=== PATIENT | female | born 1970 | race Caucasian/White ===

== ENCOUNTER 2017-10-25 16:10 | Outpatient (REF) | payer MEDICAID, SELFPAY ==
[2017-10-25 22:48] LABS: Cholesterol 122 mg/dL (50-200); HDL Cholesterol 33 mg/dL (40-60); LDL CHOLESTEROL 80 mg/dL (<100); Triglyceride 92 mg/dL (30-150)
[2017-10-25 23:05] LABS: Hemoglobin A1C 6.8 % (4.5-6.2)
== END 2017-10-25 16:30 ==
LOC: NCHCN 16:10
PROVIDERS: PCP Nurse Practitioner Family; Visit Provider Nurse Practitioner Family
DX: E11.9 Type 2 diabetes mellitus without complications (principal); R03.0 Elevated blood-pressure reading, without diagnosis of hypertension
CPT/HCPCS: 80061; 83721; 83036

== ENCOUNTER 2017-10-25 16:31 | Outpatient (REF) | payer MEDICAID, SELFPAY ==
[2017-10-26 02:17] LABS: COMMENT (LAB VIEW ONLY) 183.21 mg/dL; Microalb ug/mg Crea 15.9 ug/mg Cr
== END 2017-10-25 16:51 ==
LOC: NCHCN 16:31
PROVIDERS: PCP Nurse Practitioner Family; Visit Provider Nurse Practitioner Family
DX: E11.9 Type 2 diabetes mellitus without complications (principal); R03.0 Elevated blood-pressure reading, without diagnosis of hypertension
CPT/HCPCS: 82043; 82570

== ENCOUNTER 2017-11-27 15:06 | Outpatient (REF) | payer MEDICAID, SELFPAY ==
[2017-11-27 20:44] LABS: Anion Gap 11.6 mmol/L (3-11); BUN 13 mg/dL (7-18); CO2 24.4 mmol/L (21.0-32.0); CREATININE 0.78 mg/dL (0.55-1.02); Chloride 104 mmol/L (98-107); Glucose 88 mg/dL (70-100); Potassium 4.4 mmol/L (3.5-5.1); Sodium 140 mmol/L (136-145)
== END 2017-11-27 15:26 ==
LOC: NCHCN 15:06
PROVIDERS: PCP Nurse Practitioner Family; Visit Provider Nurse Practitioner Family
DX: E11.9 Type 2 diabetes mellitus without complications (principal)
CPT/HCPCS: 80048

== ENCOUNTER 2017-12-07 08:59 | Outpatient (CLI) | payer MEDICAID, SELFPAY ==
[2017-12-07 10:03] LABS: Anion Gap 9.8 mmol/L (3-11); BUN 11 mg/dL (7-18); CO2 23.2 mmol/L (21.0-32.0); CREATININE 0.98 mg/dL (0.55-1.02); Chloride 103 mmol/L (98-107); Glucose 196 mg/dL (70-100); Potassium 4.8 mmol/L (3.5-5.1); Sodium 136 mmol/L (136-145)
== END 2017-12-07 09:19 ==
PROVIDERS: PCP Nurse Practitioner Family; Visit Provider Nurse Practitioner Family
DX: E11.9 Type 2 diabetes mellitus without complications (principal)
CPT/HCPCS: 36415; 80048

== ENCOUNTER 2017-12-11 10:54 | Outpatient (CLI) | payer MEDICAID, SELFPAY ==
--- NOTE | 2017-12-11 10:45 | DIABASSESS_ITS ---
DESCRIPTION/ASSESSMENT: Lesvia White presents for diabetes self management focused on nutrition with her worksite wellness practitioner. Food Guidelines - Lesvia eats 2 meals a day of lunch consisting of leftovers or a sandwich with chips. She has meat, potato, vegetable for supper however she had hamburg with boxed macaroni and cheese last night. She occasionally has ice cream in the evening. She denies sweets. She does drink Mexican vanilla creamer in coffee which she drinks all day. She states she experienced weight gain while hospitalized with the stroke. Her referral identifies her as food insecure, however she denies this. She does say she runs out of food at the end of the month with food stamps but she goes to the food shelves to supplement. Physical Activity - She does no planned physical activity. She has difficulty with her left side secondary to a stroke limiting her ability. She is starting PT Monday. Medication - Metformin 1000mg twice daily without symptoms/side effects. Monitoring - A1c 6.8 Lesvia is dedicated to monitoring every morning ranging 137- 227. She also monitors before lunch 115-237 or supper 91-201. Risks/Related health history - s/p stroke. Coping - admits to high stress with current homelessness living with her 10 year old son. INTERVENTION: DSME is provided in the following AADE 7 areas based on patients interest and assessment of needs given A1c is at current goal: Food Guidelines - reviewed diabetes food guide focused on non-carbohydrate food choices. She is further referred to [facility] and given information. Physical Activity - discussed options given limitation. She does not have a band , but she does PT exercises most days. Encouraged her to ask about general muscle movement when at PT. Monitoring - encouraged increased documentation of food/stress to help understand blood sugar results. Coping - she has support from [facility] and [facility] at the least. Discussed deep breathing as stress reliever and demonstrated process. ACTION PLAN: Participate in [facility] and increase vegetable intake at lunch and supper. Discuss general physical activity with PT at next visit Document food and stress level when blood sugars are above goal Individual MNT 3 units billed TIME IN: 5241 OUT: 9405 No DM group education series being offered at this time.
== END 2017-12-11 11:14 ==
PROVIDERS: PCP Nurse Practitioner Family; Visit Provider Dietitian, Registered
DX: E11.9 Type 2 diabetes mellitus without complications (principal); Z71.3 Dietary counseling and surveillance; Z79.84 Long term (current) use of oral hypoglycemic drugs
CPT/HCPCS: 97802

== ENCOUNTER 2018-04-04 17:52 | Outpatient (REF) | payer MEDICAID, SELFPAY | END 2018-04-04 18:12 | LOC: NCHCN 17:52 | PROVIDERS: PCP Nurse Practitioner Family; Visit Provider Family Medicine | DX: N39.0 Urinary tract infection, site not specified (principal) | CPT/HCPCS: 87077; 87086; 87186 ==

== ENCOUNTER 2018-08-13 22:00 | Emergency (ER) | payer MEDICAID, SELFPAY ==
[2018-08-13 22:04] VITALS: BP 157/87; PULSE 125; RESP 18; TEMP 36.8; O2SAT 98
--- NOTE | 2018-08-13 22:15 | W.ED.GENAD ---
Discharge Plan Disposition Patient Disposition: HOME Condition: Good Discharge Details Chief Complaint: Orthopedic Clinical Impression: Frozen shoulder syndrome Primary Care Provider: Chula Dallas ED Provider: David Gilbert Home Meds and New Rx's Prescriptions: No Action lisinopril 5 mg tablet 5 mg PO DAILY RF: 0 atorvastatin 80 mg tablet 80 mg PO DAILY RF: 0 omeprazole 40 mg capsule,delayed release(DR/EC) 40 mg PO DAILY RF: 0 aspirin 81 mg tablet,chewable 81 mg PO DAILY RF: 0 fluoxetine 20 mg capsule 20 mg PO DAILY RF: 0 lisdexamfetamine [Vyvanse] 30 mg capsule 30 mg PO DAILY RF: 0 metformin 500 mg tablet 1,000 mg PO BID RF: 0 acetaminophen [Mapap Extra Strength] 500 MG tablet 1,000 mg PO PRN PRNRF: 0 ibuprofen 200 MG tablet 400 mg PO PRN PRN (Reason: Pain) RF: 0 hydrocodone-acetaminophen 1 EACH tablet 1 ea PO QID PRN PRN (Reason: Pain) Qty: 15 RF: 0 Discharge Instructions Instructions: Adhesive Capsulitis (ED) Additional Instructions: You have what I suspect to be frozen shoulder syndrome. Your x-ray shows no evidence of fracture. Please follow-up closely with your primary care provider to set up physical therapy on an outpatient basis. Will be contacted by the orthopedic doctors for evaluation of your shoulder restrictions. If you notice any worsening of your symptoms, or any new symptoms such as vomiting, diarrhea, fever, chills, shortness of breath, chest pain, numbness, weakness, or fainting , please return immediately to the emergency department for reevaluation. Please follow up with your primary care provider as soon as possible for reassessment and reevaluation. As always, it was a pleasure participating in your medical care today. Referrals: Chula Dallas [Primary Care Provider] - Medical Decision Making This is a 48-year-old female with past medical history of a stroke with significant left-sided deficits. 1 year ago she had a stroke which led to notable weakness of the left upper extremity as well as lack of sensation in the left upper extremity. At the same time she also fell and landed on her left shoulder. She had improvement of her strength and mobility after the stroke with vigorous rehab, however about 1 to 2 months ago she began having pain again in the shoulder after no trauma or other event. Because of this she has been moving it significantly less. She presents today for further evaluation of her shoulder. Exam demonstrates notable limitation in range of motion for the shoulder. Sensation is completely absent for the entire arm which she states is chronic. Mild pain over the AC joint. Signs and symptoms appear clinically consistent with frozen shoulder syndrome. We will get an x-ray to rule out acute process however I feel this notably unlikely in regards to the history. With no chest symptoms whatsoever, and notably reproducible musculoskeletal component, feel her signs and symptoms are notably inconsistent with ACS 11:05 PM Review of x-ray shows no evidence of significant fracture or acute process. Signs and symptoms appear clinically consistent with frozen shoulder syndrome at this time. We have discussed exercises for which the patient should perform, however because of the severity of this I do feel that she requires outpatient PT evaluation and can be set up on an outpatient basis by her PCP, as well as orthopedic follow-up. We will place a referral for this. We discussed red flags which to return, the importance of close follow-up. I have extensively reviewed the treatment plan and discharge instructions with the patient. I have addressed all patient concerns at this time. The patient was made aware of what symptoms to monitor for that would warrant a return to the emergency department. Discussed the plan with the patient, they demonstrate verbal understanding and agreement with our assessment and plan at this time. FINDINGS: Bones/joints: No suspicious osseous lytic or blastic lesion. No acute fracture or dislocation. Soft tissues: No focal abnormality. IMPRESSION: No acute findings. Thank you for allowing us to participate in the care of your patient. Dictated and Authenticated by: Adin Ruvalcaba MD 08/13/2018 11:08 PM Eastern Time ([place] & [place]) HPI General Date/Time Provider Initiated Documentation: 08/13/18 22:14. HPI Narrative: This is a 48-year-old female with past medical history of diabetes, stroke with significant chronic left-sided deficits, left-sided numbness, as well as regular tobacco abuse who presents today for evaluation of left shoulder pain. Patient states that she had the stroke and injured her left shoulder 1 year ago, after the stroke she lost all sensation in a significant amount of strength in her left upper extremity. Sensation has yet to come back, however she has had a slight improvement of strength over the last year with vigorous physical therapy. Unfortunately about a month to a month and a half ago she began feeling pain in the left shoulder, because of this started moving it less. She presents today out of continuation of the left shoulder pain, in conjunction with a notable decrease in range of motion in the left shoulder. She states that she did mention this to her PCP, but nothing more was done. She denies any new numbness or tingling, she denies any chest pain, or shortness of breath. Her shoulder pain is made worse with movement of the left shoulder. No radiation to the chest or neck. No history of cardiac disease. She denies any other complaints or modifying factors at this time. Related Data Home Medications Medication Instructions Recorded Confirmed acetaminophen [Tylenol Extra 1,000 mg PO PRN PRN 05/11/14 08/01/15 Strength] ibuprofen 400 mg PO PRN PRN 05/11/14 08/01/15 hydrocodone-acetaminophen 1 ea PO QID PRN PRN #15 tablet 04/08/15 aspirin 81 mg chewable tablet 81 mg PO DAILY 12/25/17 12/25/17 atorvastatin 80 mg tablet 80 mg PO DAILY 12/25/17 12/25/17 fluoxetine 20 mg capsule 20 mg PO DAILY 12/25/17 12/25/17 lisdexamfetamine 30 mg capsule 30 mg PO DAILY 12/25/17 12/25/17 lisinopril 5 mg tablet 5 mg PO DAILY 12/25/17 12/25/17 metformin 500 mg tablet 1,000 mg PO BID tab 12/25/17 12/25/17 omeprazole 40 mg capsule,delayed 40 mg PO DAILY 12/25/17 12/25/17 release Previous Rx's Medication Instructions Recorded hydrocodone-acetaminophen 1 ea PO QID PRN PRN #15 tablet 04/08/15 Allergies Allergy/AdvReac Type Severity Reaction Status Date / Time codeine AdvReac Mild Nausea Unverified 08/01/15 18:54 tramadol HCl [From Ultram] AdvReac Mild Nausea Unverified 08/01/15 18:54 General Stated Complaint: Orthopedic KALLI: 4 Review of Systems Review of Systems All systems reviewed & are unremarkable except as noted in HPI and below PFSH Medical History ADHD (Acute) Shoulder pain, left (Acute) Tobacco abuse (Acute) Diabetes (Chronic) Stroke (Chronic) Social History Smoking/Tobacco Use Status: Current every day Tobacco Type: cigarettes Smoking cigarettes per day: 5 Alcohol Intake: never Drug use: Never Substance use type: does not use Household members: family What type of physical activity do you participate in: walking Do you feel safe at home: Yes Do you feel safe in your relationship?: Yes Exam Narrative Exam Narrative: 1.Const: Well-nourished, Well-developed, appearing stated age 2.Eyes: PERRL, no conjunctival injection, and symmetrical lids. 3.ENT: Atraumatic external nose and ears. Moist MM. Neck: Symmetric, trachea midline, No thyromegaly. 4.CVS: +S1/S2, No murmurs or gallops. Peripheral pulses 2+ and equal in all extremities. Brisk capillary refill in all extremities. 5.RESP: Unlabored respiratory effort. Clear to auscultation bilaterally. No wheezes rales or rhonchi 6.GI: Soft, Nontender/Nondistended, No hepatosplenomegaly. No guarding or rebound. 7.MSK: Normocephalic/Atraumatic, Extremities w/o deformity. No cyanosis or clubbing, left upper extremity has complete lack of sensation from the shoulder to the fingertips. She has good range of motion for the fingers and good strength, and of her wrist flexion extension is notably limited. She has minimal strength for flexion and extension at the elbow minimal strength for abduction abduction flexion and extension. Range of motion is notably limited for movements of the shoulder. She has roughly 5 to 10 degrees of range of motion for both abduction, abduction, and internal and external rotation of the shoulder. Notably limited, concerning for frozen shoulder. Mild tenderness over the AC joint. 8.Skin: Warm, Dry. No rashes or lesions. 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 Sensation is notably limited in left upper extremity which is her baseline. 10.Psych: (AAO) x3. Appropriate mood and affect Course Vital Signs Temperature 36.8 C 08/13/18 22:04 Pulse 125 H 08/13/18 22:04 Respiratory Rate 18 08/13/18 22:04 Blood Pressure 157/87 H 08/13/18 22:04 Pulse Oximetry 98 08/13/18 22:04 Temperature 36.8 C 08/13/18 22:04 Temperature Source Temporal Artery Scan 08/13/18 22:04 Pulse 125 H 08/13/18 22:04 Respiratory Rate 18 08/13/18 22:04 Respiratory Effort 08/13/18 22:04 Blood Pressure 157/87 H 08/13/18 22:04 Blood Pressure Position Sitting 08/13/18 22:04 Pulse Oximetry 98 08/13/18 22:04 Oxygen Delivery Method Room Air 08/13/18 22:04 Oxygen Flow Rate 0 08/13/18 22:04 Pain Level 9 08/13/18 22:04
--- NOTE | 2018-08-13 22:25 | DI.RAD_ITS ---
SYMPTOM/DIAGNOSIS: LT SHOULDER PAIN, CONCERN FOR FROZEN SHOULDER RIGHT SHOULDER: No fracture or dislocation is seen. There are no visible degenerative changes of the AC joint or glenohumeral joint. The humeral head appears normally positioned. No tendon or joint space calcifications are seen. The visualized portions of the left upper lobe and left ribs are unremarkable. IMPRESSION: Negative left shoulder.
[2018-08-13] MEDS: Lidocaine 5% Patch 1 PATCH TP (22:27)
--- NOTE | 2018-08-13 23:08 | DI.VRAD_ITS ---
EXAM: XR Left Shoulder EXAM DATE/TIME: 08/13/2018 10:15 PM CLINICAL HISTORY: 48 years old, female; Patient HX: Left shoulder pain, concern for frozen shoulder TECHNIQUE: Imaging protocol: XR Left shoulder. Views: 2 or more views. COMPARISON: No relevant prior studies available. FINDINGS: Bones/joints: No suspicious osseous lytic or blastic lesion. No acute fracture or dislocation. Soft tissues: No focal abnormality. IMPRESSION: No acute findings. Dictated and Authenticated by: Adin Ruvalcaba MD. Ordering:CODI Hernandez MD
== END 2018-08-13 23:18 | disposition home or self-care (01) ==
PROVIDERS: Emergency Provider Student in an Organized Health Care Education/Training Program; PCP Nurse Practitioner Family
DX: M75.02 Adhesive capsulitis of left shoulder (principal); I69.134 Monoplegia of upper limb following nontraumatic intracerebral hemorrhage affecting left non-dominant side; I10 Essential (primary) hypertension; E11.9 Type 2 diabetes mellitus without complications; Z79.84 Long term (current) use of oral hypoglycemic drugs
CPT/HCPCS: 99283; 73030

== ENCOUNTER 2018-11-16 12:00 | Outpatient (REF) | payer MEDICAID, SELFPAY ==
[2018-11-16 18:26] LABS: COMMENT (LAB VIEW ONLY) 223.45 mg/dL; Microalb ug/mg Crea 31.8 ug/mg Cr
== END 2018-11-16 12:20 ==
LOC: NCHCN 12:00
PROVIDERS: PCP Nurse Practitioner Family; Visit Provider Nurse Practitioner Family
DX: E11.9 Type 2 diabetes mellitus without complications (principal)
CPT/HCPCS: 82043; 82570

== ENCOUNTER 2019-08-02 19:10 | Outpatient (REF) | payer MEDICAID, SELFPAY ==
[2019-08-08 17:05] LABS: Benzoylecgonine 296 ng/mL (Cutoff: 50); Cocaine Negative ng/mL (Cutoff: 50); Cocaine Interpretation Positive.
[2019-08-10 01:14] LABS: Amphetamine Negative ng/mL (Cutoff: 25); Amphetamines Interpretation Negative.; MDA (Ecstasy Metabolite) Negative ng/mL (Cutoff: 25); MDMA (Ecstasy) Negative ng/mL (Cutoff: 25); Methamphetamine Negative ng/mL (Cutoff: 25); Phentermine Negative ng/mL (Cutoff: 25); Pseudoephedrine/Ephedrine Negative ng/mL (Cutoff: 25)
== END 2019-08-02 19:30 ==
LOC: NCHCN 19:10
PROVIDERS: PCP Nurse Practitioner Family; Visit Provider Nurse Practitioner Family
DX: Z79.899 Other long term (current) drug therapy (principal); Z51.81 Encounter for therapeutic drug level monitoring
CPT/HCPCS: 80324; 80353

== ENCOUNTER 2020-07-15 18:13 | Outpatient (REF) | payer MEDICAID, SELFPAY ==
[2020-07-15 17:27] LABS: HCT 43.5 % (36.0-46.0); HGB 14.1 g/dL (11.2-15.7); MCH 27.4 pg (27.0-33.0); MCHC 32.4 % (32.0-36.0); MCV 84.5 fL (80-95); MPV 12.3 fL (8.0-11.0); Platelet Count 327 10^3/uL (130-400); RBC 5.15 10^6/uL (3.93-5.22); RDW 15.2 % (11.7-14.6); RDW-SD 46.9 fL; WBC 10.51 10^3/uL (4.4-10.8)
[2020-07-15 17:41] LABS: ALT 33 U/L (14-59); AST 21 U/L (15-37); Albumin 3.9 g/dL (3.4-5.0); Alkaline Phosphatase 120 U/L (46-116); Anion Gap 8.8 mmol/L (3-11); BUN 14 mg/dL (7-18); Bilirubin, Total 0.5 mg/dL (0.2-1.0); CO2 27.2 mmol/L (21.0-32.0); CREATININE 0.9 mg/dL (0.55-1.02); Calcium 9.4 mg/dL (8.5-10.1); Calculated LDL 118 mg/dL (<100); Chloride 102 mmol/L (98-107); Cholesterol 184 mg/dL (<200); Glucose 246 mg/dL (74-106); HDL Cholesterol 21 mg/dL (40-60); Potassium 4.5 mmol/L (3.5-5.1); Sodium 138 mmol/L (136-145); Total Protein 7.6 g/dL (6.4-8.2); Triglyceride 229 mg/dL (<150)
== END 2020-07-15 18:14 | disposition home or self-care (01) ==
LOC: NCHCN 18:13
PROVIDERS: PCP Nurse Practitioner Family; Visit Provider Family Medicine
DX: E11.9 Type 2 diabetes mellitus without complications (principal); I10 Essential (primary) hypertension
CPT/HCPCS: 80053; 80061; 85027

== ENCOUNTER 2020-09-29 17:30 | Outpatient (REF) | payer MEDICAID, SELFPAY ==
[2020-09-29 21:57] LABS: COMMENT (LAB VIEW ONLY) 105.95 mg/dL
[2020-09-29 22:00] LABS: Microalb ug/mg Crea 103.8 ug/mg Cr
[2020-09-29 22:02] LABS: Hemoglobin A1C 10.5 % (<5.7)
== END 2020-09-29 17:31 | disposition home or self-care (01) ==
LOC: NCHCN 17:30
PROVIDERS: PCP Nurse Practitioner Family; Visit Provider Nurse Practitioner Family
DX: E11.9 Type 2 diabetes mellitus without complications (principal)
CPT/HCPCS: 82043; 82570; 83036

== ENCOUNTER → 2021-08-16 01:52 | Outpatient (CLI) | payer MEDICAID, SELFPAY | PROVIDERS: PCP Nurse Practitioner Family; Visit Provider Nurse Practitioner Family ==

== ENCOUNTER 2021-11-12 10:53 | Emergency (ER) | payer MEDICAID, SELFPAY ==
[2021-11-12] VITALS (13 sets, daily range): BP systolic 110–155; BP diastolic 68–91; PULSE 85–110; RESP 17–34; TEMP 36.4; O2SAT 96–99
--- NOTE | 2021-11-12 10:45 | RT.EKG_ITS ---
APPROVED REPORT Exam: Resting ECG Reason for Exam: nstemi Patient Location: E HR:89 bpm ECG Measurements Heart Rate 89 AXIS DE 162 P 77 QRSd 86 QRS 66 QT 375 T 69 QTc 456 Conclusion Sinus rhythm...normal P axis, V-rate 60- 99 Inferior infarct, acute...ST>0.10mV, T upright, II III aVF ST elevation, consider anterolateral injury...ST >0.15mV, I aVL V2-V6 sinus rhythm, normal axis, normal intervals, ST segment elevation II III aVF as well as V3 V4
--- NOTE | 2021-11-12 11:00 | DI.RAD_ITS ---
Exam(s) XR PORTABLE CHEST AP EXAM: XR PORTABLE CHEST AP CLINICAL HISTORY: chest pain, concern for ACS TECHNIQUE: 2D digital imaging was performed. COMPARISON: CR RIGHT RIBS TO INCLUDE CXR from 08/01/2015 FINDINGS: LUNGS: Clear. No pleural abnormality seen. HEART: Normal. AORTA: Normal. BONES: Unremarkable for age. Soft tissues: Unremarkable. IMPRESSION: No acute findings. DATA REPOSITORY: RADIATION DOSE DELIVERED:
[2021-11-12] MEDS: Normal Saline 500 ML 1000 ML IV (11:09)
[2021-11-12] MEDS: Ondansetron 4 MG/2 ML VIAL IVP (11:10)
[2021-11-12 11:14] LABS: Abs Immature Grans 0.09 10^3/uL (0.0-0.06); Absolute Basophil Count 0.15 10^3/uL (0.0-0.2); Absolute Eosinophil Count 0.27 10^3/uL (0.0-0.7); Absolute Neutrophil Count 9.76 10^3/uL (1.2-6.7); Basophils % 1.1; HCT 45.6 % (36.0-46.0); HGB 15.5 g/dL (11.2-15.7); Immature Grans % 0.7; Lymphocytes % 18.1; MCH 30.5 pg (27.0-33.0); MCV 90 fL (80-95); MPV 11.5 fL (8.0-11.0); Monocytes % 4.5; Neutrophils % 73.6; Platelet Count 283 10^3/uL (130-400); RBC 5.09 10^6/uL (3.93-5.22); RDW 12.8 % (11.7-14.6); RDW-SD 42.3 fL; WBC 13.26 10^3/uL (4.4-10.8)
--- NOTE | 2021-11-12 11:14 | ED.GENADUL_ITS ---
Discharge Plan Disposition Patient Disposition: [facility] Condition: Stable Discharge Details Chief Complaint: Chest Pain Clinical Impression: ST elevation (STEMI) myocardial infarction Primary Care Provider: Chula Dallas ED Provider: Tunde Samayoa Home Meds and New Rx's Prescriptions: No Action lisinopril 5 mg tablet 5 mg PO DAILY atorvastatin 80 mg tablet 80 mg PO DAILY omeprazole 40 mg capsule,delayed release(DR/EC) 40 mg PO DAILY aspirin 81 mg tablet,chewable 81 mg PO DAILY fluoxetine 20 mg capsule 20 mg PO DAILY Vyvanse 30 mg capsule 30 mg PO DAILY metformin 500 mg tablet 1,000 mg PO BID acetaminophen [Mapap Extra Strength] 500 MG tablet 1,000 mg PO PRN PRN ibuprofen 200 MG tablet 400 mg PO PRN PRN (Reason: Pain) hydrocodone-acetaminophen 1 EACH tablet 1 ea PO QID PRN PRN (Reason: Pain) Qty: 15 0RF Medical Decision Making 51-year-old female history of hypertension hyperlipidemia diabetes, family history of coronary disease presents with nonexertional anterior chest pain associate with diaphoresis and nausea that began around 9 AM this morning, was given aspirin nitroglycerin in route by EMS, rhythm strip in route showing ST elevation 2 3 aVF and biphasic changes in anterior leads, repeat EKG showing persistent elevations to 3 aVF to inversion V1 biphasic/flattening in V2 concerning for ST elevation [place]. Stat consultation with [facility] cardiology has been undertaken, spoke with Dr. Haq who is consulting interventional team and will call us back with further plans regarding transfer. Will consider lysis with tenecteplase before transfer if transfer time is expected to be excessive; patient labs, chest x-ray has been ordered. HPI General Date/Time Provider Initiated Documentation: 11/12/21 11:02 . HPI Narrative: 51-year-old female history of diabetes hypertension hyperlipidemia family history of coronary disease, presents with nonexertional anterior chest pain that began around 9 AM associate with diaphoresis and nausea. Code STEMI called from the field due to elevations II III aVF and biphasic changes in anterior leads on rhythm strip. Patient was given aspirin in the field as well as nitro. Currently feeling more comfortable. Discussed case with [facility] dock hand Dr. Haq who reviewed case with interventionalust team who would like patient transferred for stat cath. Daughter has been contacted and is in route to fern picker patient. Patient amenable to transfer. Currently hemodynamically stable. Given other nonspecific findings on EKG cardiology team is also considering pericarditis in the differential and for this reason we are holding tenecteplase and clopidogrel but will proceed with Related Data Home Medications Medication Instructions Recorded Confirmed acetaminophen 500 mg tablet (Mapap 1,000 mg PO PRN PRN 05/11/14 11/12/21 Extra Strength) ibuprofen 200 mg tablet 400 mg PO PRN PRN Pain 05/11/14 11/12/21 hydrocodone 5 mg-acetaminophen 325 1 ea PO QID PRN PRN Pain ##15 04/08/15 11/12/21 mg tablet aspirin 81 mg chewable tablet 81 mg PO DAILY 12/25/17 11/12/21 atorvastatin 80 mg tablet 80 mg PO DAILY 12/25/17 11/12/21 fluoxetine 20 mg capsule 20 mg PO DAILY 12/25/17 11/12/21 lisdexamfetamine 30 mg capsule 30 mg PO DAILY 12/25/17 11/12/21 (Vyvanse) lisinopril 5 mg tablet 5 mg PO DAILY 12/25/17 11/12/21 metformin 500 mg tablet 1,000 mg PO BID 12/25/17 11/12/21 omeprazole 40 mg capsule,delayed 40 mg PO DAILY 12/25/17 11/12/21 release Previous Rx's Medication Instructions Recorded hydrocodone 5 mg-acetaminophen 325 1 ea PO QID PRN PRN Pain ##15 04/08/15 mg tablet Allergies Allergy/AdvReac Type Severity Reaction Status Date / Time codeine AdvReac Mild Nausea Unverified 08/01/15 18:54 tramadol HCl [From Ultram] AdvReac Mild Nausea Unverified 08/01/15 18:54 General Stated Complaint: Chest Pain KALLI: 2 Review of Systems Narrative: Review of Systems Constitutional: negative Eyes: negative ENT: negative Cardiovascular: Chest pain Respiratory: negative Gastrointestinal: negative : negative Musculoskeletal: negative Skin: negative Neurologic: negative Psych: negative PFSH All Active Problems (Updated 11/12/21 @ 11:39 by Tunde Samayoa MD) ST elevation (STEMI) myocardial infarction (Acute) Medical History (Updated 11/12/21 @ 11:39 by Tunde Samayoa MD) ADHD Diabetes Shoulder pain, left Stroke Tobacco abuse Social History (Updated 12/25/17 @ 14:50 by DELANEY Serrano Smoking/Tobacco Use Status: Current every day Tobacco Type: cigarettes Smoking risk assessment performed?: Yes Alcohol Intake: never Drug use: Never Substance use type: does not use Household members: family What type of physical activity do you participate in: walking Do you feel safe at home: Yes Do you feel safe in your relationship?: Yes Exam Narrative Exam Narrative: Physical Examination General: alert, awake, cooperative, resting comfortably, no acute distress HEENT: normocephalic, atraumatic; PERRL, EOM intact, conjunctiva normal; no nasal discharge; moist mucous membranes, oral and pharyngeal mucosa normal, tolerating secretions Neck: supple, trachea midline; full ROM Chest: normal to inspection Respiratory: normal respiratory effort, speaking in full sentences, clear to auscultation, no wheezing, rales or rhonchi Cardiac: regular rate, regular rhythm, S1S2 intact, no murmurs rubs or gallops GI: abdomen soft, non-tender, non-distended; no palpable mass or hepatosplenomegaly Skin: no lesions, rashes or trauma appreciated Neuro: AAOx3, normal speech, moving all extremities Extremities: No peripheral edema Psych: Appropriate mood and affect Course Vital Signs Vital signs: Vital Signs Temperature 36.4 C L 11/12/21 10:54 Pulse 110 H 11/12/21 10:54 Respiratory Rate 17 11/12/21 10:54 Blood Pressure 132/83 11/12/21 10:54 Pulse Oximetry 99 11/12/21 10:54 Temperature 36.4 C L 11/12/21 10:54 Temperature Source Temporal Artery Scan 11/12/21 10:54 Pulse 110 H 11/12/21 10:54 Respiratory Rate 17 11/12/21 11:11 Respiratory Effort Non-Labored 11/12/21 11:11 Respiratory Depth Normal 11/12/21 11:11 Respiratory Pattern Normal 11/12/21 11:11 Blood Pressure 132/83 11/12/21 10:54 Blood Pressure Position Supine 11/12/21 10:54 Pulse Oximetry 99 11/12/21 10:54 Oxygen Delivery Method Room Air 11/12/21 10:54 Oxygen Flow Rate 0 11/12/21 10:54 Pain Level 4 11/12/21 10:54
[2021-11-12 11:28] LABS: PTT Activated 22.1 sec (21.0-27.5); Prothrombin Time 10.4 sec (9.3-11.0)
[2021-11-12 11:38] LABS: ALT 32 U/L (14-59); AST 18 U/L (15-37); Albumin 3.7 g/dL (3.4-5.0); Alkaline Phosphatase 102 U/L (46-116); Anion Gap 9.1 mmol/L (3-11); BUN 18 mg/dL (7-18); Bilirubin, Total 0.4 mg/dL (0.2-1.0); CO2 25.9 mmol/L (21.0-32.0); Calcium 9.5 mg/dL (8.5-10.1); Chloride 100 mmol/L (98-107); Estimated GFR 68.63 (mL/min/1.73m2); Glucose 440 mg/dL (74-106); Potassium 4.4 mmol/L (3.5-5.1); Sodium 135 mmol/L (136-145); Total Protein 7.6 g/dL (6.4-8.2)
[2021-11-12 11:41] LABS: Troponin I 117 ng/L (<or=60)
== END 2021-11-12 12:26 | disposition short-term general hospital (02) ==
LOC: ER 11:44
PROVIDERS: Emergency Provider Emergency Medicine; PCP Nurse Practitioner Family
DX: I21.3 ST elevation (STEMI) myocardial infarction of unspecified site (principal); E11.9 Type 2 diabetes mellitus without complications; F17.210 Nicotine dependence, cigarettes, uncomplicated; Z79.84 Long term (current) use of oral hypoglycemic drugs
CPT/HCPCS: 80053; 93005; 96365; 96375; 99285; 71045; 84484; 85025; 85610; 85730; 93010; J2405; J3490

== ENCOUNTER 2022-05-25 13:33 | Outpatient (REF) | payer MEDICAID, SELFPAY ==
[2022-05-25 16:00] LABS: Bilirubin Negative (Negative); Blood Negative (Negative); Clarity Cloudy (Clear); Glucose >=1000 mg/dL (Negative); Ketones Negative (Negative); Leukocyte Esterase Small (Negative); Nitrite Negative (Negative); Urobilinogen 0.2 mg/dL (Up to 0.2)
[2022-05-25 16:22] LABS: Bacteria Many HPF (Negative); C & S Indicated? Yes; Casts Negative LPF (Negative); Crystals Negative HPF (Negative); Epithelial Cells Few HPF (Negative); Mucus Negative (Negative); RBC 0-2 HPF (0-2)
[2022-05-25 17:10] LABS: COMMENT (LAB VIEW ONLY) 76.36 mg/dL; Microalb ug/mg Crea 99.9 ug/mg Cr
== END 2022-05-25 13:34 | disposition home or self-care (01) ==
LOC: NCHCN 13:33
PROVIDERS: PCP Nurse Practitioner Family; Visit Provider Family Medicine
DX: E11.9 Type 2 diabetes mellitus without complications (principal); R82.998 Other abnormal findings in urine
CPT/HCPCS: 87077; 81003; 81015; 82043; 82570; 87086; 87186

== ENCOUNTER 2023-03-29 12:12 | Outpatient (REF) | payer MEDICAID, SELFPAY ==
[2023-03-29 15:42] LABS: Anion Gap 10.6 mmol/L (3-11); BUN 17 mg/dL (7-18); CO2 26.4 mmol/L (21.0-32.0); CREATININE 0.9 mg/dL (0.55-1.02); Calcium 9.8 mg/dL (8.5-10.1); Chloride 100 mmol/L (98-107); Glucose 299 mg/dL (74-106); Potassium 4.5 mmol/L (3.5-5.1); Sodium 137 mmol/L (136-145)
[2023-03-29 16:10] LABS: Hemoglobin A1C 11.4 % (<5.7)
== END 2023-03-29 12:13 | disposition home or self-care (01) ==
LOC: NCHCN 12:12
PROVIDERS: PCP Nurse Practitioner Family; Visit Provider Family Medicine
DX: E11.9 Type 2 diabetes mellitus without complications (principal); R82.90 Unspecified abnormal findings in urine
CPT/HCPCS: 80048; 83036